=== PATIENT | male | born 1980 | race Caucasian/White ===

== ENCOUNTER 2019-03-30 03:10 | Emergency (ER) | payer BC ==
[2019-03-30] MEDS ORDERED: KETOROLAC TROMETHAMINE 60 MG/2 ML SDV IM ONE (03:36)
--- NOTE | 2019-03-30 03:39 | ER Document Report ---
HPI - HPI Patient complains to provider of: right shoulder pain Time Seen by Provider: 03/30/19 03:29 Pain Level: 4 Context: Patient is a 38-year-old male that comes emergency department for chief complaint of right shoulder pain. He states he has a muscle spasm and a pinched nerve. He states it started out as sore and tight and has progressed to become very sharp and painful to where he cannot sleep tonight. He is right-handed. He works as a respiratory therapist. He denies numbness in the arm, weakness in the hand, injury, fever/chills, incontinence, or history of IV drug abuse. He denies any diagnosed medical problems. He is on prophylaxis with anti-virals because of a needlestick recently. Past Medical History - General Information source: Patient - Social History Smoking Status: Former Smoker Frequency of alcohol use: None Drug Abuse: None Lives with: Family Family History: Reviewed & Not Pertinent Patient has suicidal ideation: No Patient has homicidal ideation: No Surgical Hx: Negative - Immunizations Immunizations up to date: Yes Hx Diphtheria, Pertussis, Tetanus Vaccination: Yes Vertical Provider Document - CONSTITUTIONAL General Appearance: WD/WN. negative: No Apparent Distress - Patient moves unc omfortably, trying to hold pressure over his left posterior shoulder with his other hand. He appears to be in some pain. He is not in severe distress., Severe Distress - INFECTION CONTROL TRAVEL OUTSIDE OF THE [place] IN LAST 30 DAYS: No - HEENT HEENT: Atraumatic, Normal ENT Exam, Normocephalic - NECK Neck: Normal Inspection - RESPIRATORY Respiratory: Breath Sounds Normal, No Respiratory Distress - CARDIOVASCULAR Cardiovascular: Regular Rate, Regular Rhythm - GI/ABDOMEN Gastrointestinal: Abdomen Soft, Abdomen Non-Tender - BACK Back: negative: Normal Inspection - Tight muscle fibers in the right trapezius area just above the scapula consistent with spasm. No midline tenderness, no saddle anesthesia, no signs of trauma. Normal upper and lower extremity range of motion, normal strength, normal distal neurovascular exam. - MUSCULOSKELETAL/EXTREMETIES Musculoskeletal/Extremeties: MAEW, FROM - Pain with range of motion of the right arm but range of motion is still intact, Non-Tender - NEURO Level of Consciousness: Awake, Alert, Appropriate Motor/Sensory: No Motor Deficit, No Sensory Deficit - DERM Integumentary: Warm, Dry, No Rash Course - Re-evaluation Re-evalutation: Patient with obvious muscle spasm in the right trapezius muscle area, pain with movement, very tight on exam. No neurological deficits. No concerning symptoms reported otherwise. Patient is driving, requests only Toradol at this time. He requests a muscle relaxer and that works well and is not sedating. He states he has insurance and is willing to pay a co-pay so he was given Skelaxin after discussion of options. I discussed return precautions in detail. Patient states understanding and agreement. Stable at time of discharge. - Vital Signs Vital signs: Temp Pulse Resp BP Pulse Ox 98 F 99 16 158/96 H 97 03/30/19 03:16 03/30/19 03:16 03/30/19 03:16 03/30/19 03:16 03/30/19 03:16 Discharge - Discharge Clinical Impression: Upper back pain on right side, Muscle spasm Condition: Stable Disposition: HOME, SELF-CARE Additional Instructions: Your evaluation is consistent with a muscle spasm in the trapezius muscle area. Continue [id number] anti-inflammatories, heat, and massage of the area, also take the muscle relaxer as prescribed. Follow-up with primary care. Return if you worsen including developing numbness, swelling, fever, severe worsening pain, or any other concerning or worsening symptoms. Prescriptions: Metaxalone [Skelaxin 800 mg Tablet] 800 mg PO ASDIR PRN #20 tablet PRN Reason: Referrals: REYNA MURRAY MD [ACTIVE STAFF] - Follow up as needed
[2019-03-30 04:11] VITALS: BP 158/104
== END 2019-03-30 03:55 | disposition home or self-care (01) ==
LOC: ER 03:10
DX: M54.9 Dorsalgia, unspecified (principal); M25.511 Pain in right shoulder; M62.830 Muscle spasm of back; Z87.891 Personal history of nicotine dependence
CPT/HCPCS: 96372; 99283; J1885